=== PATIENT | female | born 1975 | race African-American/Black ===

== ENCOUNTER 2024-05-14 22:28 | Emergency (ER) | payer BC ==
[~2024-05-14] VITALS: Ht 188 cm; Wt 120.2 kg
[2024-05-14 23:25] LABS: BILIRUBIN,URINE NEGATIVE (NEGATIVE); CLARITY,URINE SL CLOUDY (CLEAR); COLOR,URINE YELLOW (YELLOW); GLUCOSE, URINE NEGATIVE (NEGATIVE); KETONES,URINE NEGATIVE (NEGATIVE); LEUKOCYTE ESTERASE ,URINE MODERATE (NEGATIVE); NITRITE,URINE NEGATIVE (NEGATIVE); PH,URINE 6.5 (5 - 7); PROTEIN,URINE DIPSTICK 2+ (NEGATIVE); URINE UROBILINOGEN 0.2 mg/dL (0.2 - 1)
[2024-05-14 23:49] LABS: BACTERIA,URINE MANY /HPF; EPITHELIAL CELLS,URINE FEW /LPF; RENAL EPITHELIAL CELLS,URINE FEW; WBC,URINE (MAN) >50 /HPF (0-5)
[2024-05-15] MEDS ORDERED: CEFDINIR300 MG PO (00:08)
[2024-05-15] MEDS ORDERED: PYRIDIUM200 MG PO (00:08)
[2024-05-15] MEDS ORDERED: ONDANSETRON ODT4 MG SL (00:08)
[2024-05-15 00:15] VITALS: PULSE 78; RESP 16; TEMP 97.9; O2SAT 100
== END 2024-05-15 00:15 | disposition home or self-care (01) ==
LOC: EDSEX 22:28 → ER 05-15 00:09
DX: R30.0 Dysuria (principal); N39.0 Urinary tract infection, site not specified; R10.30 Lower abdominal pain, unspecified; I10 Essential (primary) hypertension
CPT/HCPCS: 81001; 87086; 87186; 99283